=== PATIENT | female | born 1975 | race Two or more races ===

== ENCOUNTER 2022-10-04 04:11 | Emergency (ER) | payer MEDICAID ==
[~2022-10-04] VITALS: Ht 157.5 cm; Wt 95.5 kg
[2022-10-04 05:29] LABS: Hemoglobin 13.2 g/dL (12.2-16.2); Mean Corpuscular Hemoglobin 30.8 pg (28.0-32.0); Mean Corpuscular Hgb Conc. 33.8 g/dL (32.0-36.0); Mean Corpuscular Volume 91.2 fL (80.0-100.0); Red Blood Cells 4.28 10^6/uL (4.0-5.20); Red Cell Distribution Width 13.4 % (11.8-14.3); White Blood Cell 9.7 10^3/uL (4.4-10.8)
[2022-10-04 05:31] LABS: Albumin 3.4 g/dL (3.4-5.0); Calcium 8.3 mg/dL (8.5-10.1); Potassium 4.1 mmol/L (3.5-5.1)
[2022-10-04 05:34] LABS: BUN/Creatinine Ratio 15.9 (10.0-20.0); Bilirubin, Total 0.3 mg/dL (0.2-1.0); Total Protein 7.4 g/dL (6.4-8.2)
[2022-10-04 05:53] LABS: Basophils % (manual) 0 (0.0-2.0); Blast Cells 0; Metamyelocytes % 0; Myelocytes % 0; Promyelocytes % 0; Reactive Lymphocytes 0
[2022-10-04 08:24] LABS: Band Neutrophils % (manual) 3; Eosinophils % (manual) 17 (0-7); Lymphocytes % (manual) 29 (10.0-50.0); Monocytes % (manual) 11 (0-12)
[2022-10-04] MEDS ORDERED: TRAM50TA2 PO (08:26)
[2022-10-04 08:42] VITALS: BP 108/63; PULSE 62; RESP 18; TEMP 97.9; O2SAT 99
== END 2022-10-04 08:44 | disposition home or self-care (01) ==
LOC: ER 04:11
DX: R10.11 Right upper quadrant pain (principal); M79.18 Myalgia, other site; Z32.02 Encounter for pregnancy test, result negative
CPT/HCPCS: 36415; 71045; 76705; 80053; 81025; 83690; 85007; 85027